=== PATIENT | female | born 1930 | race Caucasian/White ===

== ENCOUNTER → 2018-02-25 | Outpatient (CLI) | payer MEDICARE ==
--- NOTE | 2018-02-26 07:21 | US ---
EXAMINATION TYPE: US thyroid st tissue head/neck DATE OF EXAM: 02/25/2018 COMPARISON: NONE CLINICAL HISTORY: E04.2 Nontoxic Multinodular Goiter. Goiter, No thyroid medications GLAND SIZE: Right Lobe: 7.3 x 2.3 x 2.6 cm Overall Parenchyma: heterogenous Left Lobe: 4.0 x 1.5 x 1.6 cm Overall Parenchyma: heterogeneous Isthmus Thickness: 0.5 cm NODULES RIGHT: # of nodules measured on right: 1 1. 5.1 X 2.4 x 2.3 cm hypoechoic mixed nodule at the mid/lower pole with well-defined margins. Thi s nodule is taller than wide and shows intranodular vascularity. Prior size: No previous LEFT: # of nodules measured on left: 1 1. 0.7 X 0.4 x 0.4 cm hypoechoic solid nodule at the mid pole with well-defined margins. This nodu le is taller than wide and shows no intranodular vascularity. Prior size: No previous ISTHMUS: # of nodules measured in the isthmus: 1 1. 0.8 X 0.9 x 0.6 cm cystic nodule with well-defined margins. This nodule is wider than tall and shows no intranodular vascularity. Prior size: no previous Bilateral neck scanned, no evidence of lymphadenopathy. Suboptimal visualization of right thyroid due to size extending below clavicle IMPRESSION: Hypervascular 5.1 cm right thyroid nodule for which percutaneous fine-needle aspiration would be mee mmended if not previously performed. Other smaller subcentimeter nodules are incidentally seen.
== END | disposition home or self-care (01) ==
LOC: RADUSWWP 16:07
PROVIDERS: ATTEND Internal Medicine Endocrinology, Diabetes & Metabolism
DX: E04.1 Nontoxic single thyroid nodule (principal)
CPT/HCPCS: 76536; 84443